=== PATIENT | female | born 1980 | race Caucasian/White ===

== ENCOUNTER 2018-01-08 14:16 | Emergency (ER) | payer OTHER ==
[~2018-01-08] VITALS: Ht 139.7 cm; Wt 63.0 kg
[~2018-01-08 14:16] MED LIST: ALBU8I INH; DIFL150T PO; HYDR-3533 PO; IMIT25TA PO; MACR100C PO; [UNRECOGNIZED DRUG - CODE] EX; [UNRECOGNIZED DRUG - CODE] TOP
[2018-01-08 14:40] VITALS: BP 145/75; PULSE 100; RESP 16; TEMP 97.7; O2SAT 95
--- NOTE | 2018-01-08 15:55 | PD ---
HPI Chief Complaint: GI Complaint Time Seen by Provider: 15:45 Travel History International Travel<30 days: No Contact w/Intl Traveler<30days: No Traveled to known affect area: No History of Present Illness HPI 37 y/o female presents with nausea and upper abdominal pain. She states she is also having pain over her bladder. She denies any other concurrent complaints. She denies recurrent history of this. She denies specific modifying factors. Quality is pressure. Severity is moderate. Location is upper. Duration is couple of days. 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 1/4 cc (Adverse Reaction, Mild, [facility] [place] warm all over and nauseous and lightheaded. Transient, 02/12/12) Reported Meds & Prescriptions Reported Meds & Active Scripts Active No Active Prescriptions or Reported Medications Review of Systems Except as stated in HPI: all other systems reviewed are Neg Physical Exam Narrative GENERAL: No apparent distress SKIN: Focused skin assessment warm/dry. HEAD: Atraumatic. Normocephalic. EYES: Pupils equal and round. No scleral icterus. No injection or drainage. ENT: No nasal bleeding or discharge. Mucous membranes pink and moist. NECK: Trachea midline. No JVD. CARDIOVASCULAR: Regular rate and rhythm. No murmur appreciated. RESPIRATORY: No accessory muscle use. Clear to auscultation. Breath sounds equal bilaterally. GASTROINTESTINAL: Abdomen soft, mild tenderness in epigastric and suprapubic area, nondistended. No rebound MUSCULOSKELETAL: No obvious deformities. No clubbing. No cyanosis. No edema. NEUROLOGICAL: Awake and alert. No obvious cranial nerve deficits. Motor grossly within normal limits. Normal speech. PSYCHIATRIC: Appropriate mood and affect; insight and judgment normal. Data Data Last Documented VS Vital Signs Date Time Temp Pulse Resp B/P (MAP) Pulse Ox O2 Delivery O2 Flow Rate FiO2 01/08/18 18:20 90 18 137/68 (91) 95 Room Air 01/08/18 14:40 97.7 Orders Orders Urinalysis - C+S If Indicated (01/08/18 14:55) Ed Urine Pregnancytest Poc (01/08/18 14:55) Complete Blood Count With Diff (01/08/18 15:49) Comprehensive Metabolic Panel (01/08/18 15:49) Lipase (01/08/18 15:49) Iv Access Insert/Monitor (01/08/18 15:49) Sodium Chlor 0.9% 1000 Ml Inj (Ns 1000 M (01/08/18 16:00) Ct Abd/Pel W/O Iv Contrast (01/08/18 ) Us Pelvis Comp W Doppler (01/08/18 ) Labs Laboratory Tests Test 01/08/18 15:55 01/08/18 16:45 White Blood Count 11.6 TH/MM3 Red Blood Count 5.01 MIL/MM3 Hemoglobin 13.8 GM/DL Hematocrit 41.3 % Mean Corpuscular Volume 82.4 FL Mean Corpuscular Hemoglobin 27.5 PG Mean Corpuscular Hemoglobin Concent 33.4 % Red Cell Distribution Width 12.8 % Platelet Count 282 TH/MM3 Mean Platelet Volume 8.4 FL Neutrophils (%) (Auto) 84.7 % Lymphocytes (%) (Auto) 7.2 % Monocytes (%) (Auto) 4.7 % Eosinophils (%) (Auto) 0.7 % Basophils (%) (Auto) 2.7 % Neutrophils # (Auto) 9.9 TH/MM3 Lymphocytes # (Auto) 0.8 TH/MM3 Monocytes # (Auto) 0.5 TH/MM3 Eosinophils # (Auto) 0.1 TH/MM3 Basophils # (Auto) 0.3 TH/MM3 CBC Comment DIFF FINAL Differential Comment Blood Urea Nitrogen 12 MG/DL Creatinine 0.60 MG/DL Random Glucose 121 MG/DL Total Protein 7.5 GM/DL Albumin 3.4 GM/DL Calcium Level 8.4 MG/DL Alkaline Phosphatase 91 U/L Aspartate Amino Transf (AST/SGOT) 16 U/L Alanine Aminotransferase (ALT/SGPT) 11 U/L Total Bilirubin 0.4 MG/DL Sodium Level 133 MEQ/L Potassium Level 4.2 MEQ/L Chloride Level 100 MEQ/L Carbon Dioxide Level 27.1 MEQ/L Anion Gap 6 MEQ/L Estimat Glomerular Filtration Rate 113 ML/MIN Lipase 109 U/L Urine Collection Type CLEAN CATCH Urine Color YELLOW Urine Turbidity CLEAR Urine pH 7.0 Urine Specific [place] 1.016 Urine Protein NEG mg/dL Urine Glucose (UA) NEG mg/dL Urine Ketones NEG mg/dL Urine Occult Blood NEG Urine Nitrite NEG Urine Bilirubin NEG Urine Leukocyte Esterase NEG Urine Squamous Epithelial Cells 6-8 /hpf Microscopic Urinalysis Comment CULT NOT INDICATED MDM Medical Decision Making Medical Screen Exam Complete: Yes Emergency Medical Condition: Yes Medical Record Reviewed: Yes (Past history confirmed) Interpretation(s) CBC & BMP Diagram 01/08/18 15:55 Total Protein 7.5, Albumin 3.4, Calcium Level 8.4 L, Alkaline Phosphatase 91, Aspartate Amino Transf (AST/SGOT) 16, Alanine Aminotransferase (ALT/SGPT) 11, Total Bilirubin 0.4 Last 24 hours Impressions Abdomen/Pelvis CT 01/08/18 0000 Signed Impressions: Service Date/Time: Saturday, January 08, 2018 17:17 - CONCLUSION: Marked elevation of the left diaphragm of undetermined etiology. Nonspecific low density mass in the left lobe of the liver. Further characterization with multiphase contrasted MRI on an elective basis would be reassuring. Right adnexal mass may be associated with the right ovary or may be an exit uterine mass. Further evaluation with elective pelvic MRI suggested. No evidence of kidney stone or hydronephrosis. Severe curvature and morphologic deformity of the spine. Gonzalo Chavez MD Differential Diagnosis gastritis, UTI, , stone,Cholelithiasis Narrative Course We will check blood work, urinalysis and dose with IV fluids and Zofran and reevaluate ct with large right ovarian cyst, will check pelvic ultrasound for flow ultrasound without flow per tech on right and patient not sexually active so can 't perform transvaginal, will discuss with ob hospitalist Physician Communication Physician Communication dr ascencio states to send to [facility] ER for evaluation dr smith given report to call dr ascencio for evaluation when in ER Diagnosis Primary Impression: Ovarian cyst Qualified Codes: N83.201 - Unspecified ovarian cyst, right side Additional Impression: Abdominal pain Qualified Codes: R10.9 - Unspecified abdominal pain Scripts No Active Prescriptions or Reported Meds Disposition: 70 TRANSFER TO OTHER FACILITY ([facility] er) Condition: Stable Clara Boss MD Jan 08, 2018 15:55
[2018-01-08] MEDS ORDERED: SODIUM CHLOR 0.9% 1000 ML INJ 1,000 ML IV ONE (16:00)
[2018-01-08 16:12] LABS: AUTOMATED NEUTROPHIL # 9.9 TH/MM3 (1.8-7.7); BASOPHIL # 0.3 TH/MM3 (0-0.2); BASOPHIL % 2.7 % (0.0-2.0); EOSINOPHIL # 0.1 TH/MM3 (0-0.4); EOSINOPHIL % 0.7 % (0.0-4.0); HEMATOCRIT 41.3 % (35.0-46.0); HEMOGLOBIN 13.8 GM/DL (11.6-15.3); LYMPH % 7.2 % (9.0-44.0); LYMPHOCYTE # 0.8 TH/MM3 (1.0-4.8); MEAN CELL VOLUME 82.4 FL (80.0-100.0); MEAN CORPUSCULAR HEMOGLOBIN 27.5 PG (27.0-34.0); MEAN CORPUSCULAR HGB CONC 33.4 % (32.0-36.0); MEAN PLATELET VOLUME 8.4 FL (7.0-11.0); MONO % 4.7 % (0.0-8.0); MONOCYTE # 0.5 TH/MM3 (0-0.9); NEUT % 84.7 % (16.0-70.0); PLATELET COUNT 282 TH/MM3 (150-450); RED BLOOD COUNT 5.01 MIL/MM3 (4.00-5.30); RED CELL DISTRIBUTION WIDTH 12.8 % (11.6-17.2); WHITE BLOOD COUNT 11.6 TH/MM3 (4.0-11.0)
[2018-01-08 16:42] LABS: CHLORIDE 100 MEQ/L (98-107); SODIUM (NA) 133 MEQ/L (136-145)
[2018-01-08 16:45] LABS: CALCIUM 8.4 MG/DL (8.5-10.1)
[2018-01-08 16:46] LABS: ALBUMIN 3.4 GM/DL (3.4-5.0); BICARBONATE 27.1 MEQ/L (21.0-32.0); BLOOD UREA NITROGEN 12 MG/DL (7-18); GLUCOSE,RANDOM 121 MG/DL (74-106)
[2018-01-08 16:49] LABS: ALT (GPT) 11 U/L (10-53); AST (GOT) 16 U/L (15-37); GLOMERULAR FILTRATION RATE 113 ML/MIN (>89)
[2018-01-08 16:50] LABS: TOTAL BILIRUBIN ADULT 0.4 MG/DL (0.2-1.0); TOTAL PROTEIN 7.5 GM/DL (6.4-8.2)
[2018-01-08 16:52] LABS: ALKALINE PHOSPHATASE 91 U/L (45-117)
[2018-01-08 17:01] LABS: BILIRUBIN, URINE NEG (NEG); BLOOD, URINE NEG (NEG); GLUCOSE,URINE NEG (NEG); KETONE, URINE NEG (NEG); NITRITE,URINE NEG (NEG); URINE LEUKOCYTE ESTERASE NEG (NEG)
[2018-01-08 17:14] LABS: URINE COLOR YELLOW (YELLW/STRAW)
--- NOTE | 2018-01-08 17:51 | RADRPT ---
EXAM DATE/TIME: 01/08/2018 17:17 [facility] COMPARISON: No previous studies available for comparison. INDICATIONS : Abdominal pain, urinary "pressure," and nausea. ORAL CONTRAST: No oral contrast ingested. RADIATION DOSE: 18.10 CTDIvol (mGy) MEDICAL HISTORY : Scoliosis. SURGICAL HISTORY : None. ENCOUNTER: Initial ACUITY: 1 day PAIN SCALE: 5/10 LOCATION: abdomen TECHNIQUE: Volumetric scanning of the abdomen and pelvis was performed. Using automated exposure control and ad justment of the mA and/or kV according to patient size, radiation dose was kept as low as reasonably achievable to obtain optimal diagnostic quality images. DICOM format image data is available electro nically for review and comparison. FINDINGS: LOWER LUNGS: The left diaphragm is markedly elevated and the left lung bases not therefore seen. Visualized right lung base is clear. There is dextroposition of the cardiac and mediastinal structures secondary to pr esence of abdominal contents in the low left thorax LIVER: 1 cm low density in the left lobe may be cyst or hemangioma. This is nonspecific. No evidence of bili jose ductal dilatation SPLEEN: Incompletely seen PANCREAS: Within normal limits. KIDNEYS: Normal in size and shape. There is no mass, stone, or hydronephrosis. ADRENAL GLANDS: Within normal limits. VASCULAR: There is no aortic aneurysm. BOWEL/MESENTERY: Incompletely seen. No dilated bowel loops are identified. ABDOMINAL WALL: Moderate rectus diastases.. RETROPERITONEUM: There is no lymphadenopathy. BLADDER: No wall thickening or mass. REPRODUCTIVE: 7 cm complex solid soft tissue density mass in the right adnexal region may be associated with the ri ght ovary, however this could also be an exophytic uterine mass such as fibroid. Left ovary appears g rossly normal. There is no free pelvic fluid identified. INGUINAL: There is no lymphadenopathy or hernia. MUSCULOSKELETAL: Severe curvature and morphologic deformity of the thoracolumbar spine CONCLUSION: Marked elevation of the left diaphragm of undetermined etiology. Nonspecific low density mass in the left lobe of the liver. Further characterization with multiphase contrasted MRI on an elective basis would be reassuring. Right adnexal mass may be associated with the right ovary or may be an exit uterine mass. Further alejandro luation with elective pelvic MRI suggested. No evidence of kidney stone or hydronephrosis. Severe curvature and morphologic deformity of the spine. Gonzalo Chavez MD on January 08, 2018 at 17:40 Board Certified Radiologist. This report was verified electronically.
[2018-01-08 18:20] VITALS: BP 137/68; PULSE 90; RESP 18; O2SAT 95
--- NOTE | 2018-01-08 18:59 | RADRPT ---
EXAM DATE/TIME: 01/08/2018 18:24 [facility] COMPARISON: No previous studies available for comparison. INDICATIONS : Back and abdominal pain. MEDICAL HISTORY : Scoliosis. Neurofibromatosis. Gastroparesis. SURGICAL HISTORY : None. ENCOUNTER: ACUITY: 1 day PAIN SCORE: 6/10 LOCATION: Bilateral pelvis MEASUREMENTS: UTERUS: 9.6 x 5.2 x 3.6 cm ENDOMETRIAL STRIPE: 4 mm RIGHT OVARY: 7.5 x 6.1 x 5.3 cm LEFT OVARY: 3.2 x 2.2 x 1.9 cm FINDINGS: UTERUS: The myometrium has homogeneous echotexture without mass. There is a small amount of fluid in the endo metrial cavity and along the lower uterine segment. RIGHT OVARY: The right ovary appears to be diffusely enlarged. No definite color flow is seen within the right ova ry. There is a right ovarian cyst measuring 2.3 x 2.0 cm. LEFT OVARY: Ovary contains no mass or significant cystic lesion. There is flow to the left ovary. MISCELLANEOUS: No free fluid. CONCLUSION: 1. There is a small amount of fluid in the endometrial cavity and along the lower uterine segment. 2. Diffusely enlarged right ovary measuring approximately 7.5 cm with no recorded Doppler flow. Ovari an torsion would be a consideration if this correlates with patient's physical and clinical exam. 3. There is a benign-appearing right ovarian cyst measuring 2.3 cm. 4. The left ovary is unremarkable. Juanjose Cardoso MD on January 08, 2018 at 18:54 Board Certified Radiologist. This report was verified electronically.
[2018-01-08 19:20] VITALS: BP 147/71; PULSE 99; RESP 16; TEMP 97.9; O2SAT 100
[2018-01-08 19:57] VITALS: BP 127/79; PULSE 100; RESP 16; TEMP 98; O2SAT 100
[2018-01-08] MEDS ORDERED: KETOROLAC TROMETHAMINE 30 MG/ML (IVP) VIAL IV PUSH ONE (20:30)
--- NOTE | 2018-01-08 21:01 | PD ---
Physical Exam Date Seen by Provider: Jan 08, 2018 Time Seen by Provider: 21:00 Narrative For full history and physical examination please see previous providers note. Patient was transferred from [place] emergency department for evaluation by OB hospitalist. Notify Dr. Beltran who is currently in a section and will be down to assess patient when the surgery is completed. Data Data Last Documented VS Vital Signs Date Time Temp Pulse Resp B/P (MAP) Pulse Ox O2 Delivery O2 Flow Rate FiO2 01/08/18 19:57 98.0 100 16 127/79 (95) 100 Room Air Orders Orders Urinalysis - C+S If Indicated (01/08/18 14:55) Ed Urine Pregnancytest Poc (01/08/18 14:55) Complete Blood Count With Diff (01/08/18 15:49) Comprehensive Metabolic Panel (01/08/18 15:49) Lipase (01/08/18 15:49) Iv Access Insert/Monitor (01/08/18 15:49) Sodium Chlor 0.9% 1000 Ml Inj (Ns 1000 M (01/08/18 16:00) Ct Abd/Pel W/O Iv Contrast (01/08/18 ) Us Pelvis Comp W Doppler (01/08/18 ) Ketorolac Inj (Toradol Inj) (01/08/18 20:30) Labs Laboratory Tests Test 01/08/18 15:55 01/08/18 16:45 White Blood Count 11.6 TH/MM3 Red Blood Count 5.01 MIL/MM3 Hemoglobin 13.8 GM/DL Hematocrit 41.3 % Mean Corpuscular Volume 82.4 FL Mean Corpuscular Hemoglobin 27.5 PG Mean Corpuscular Hemoglobin Concent 33.4 % Red Cell Distribution Width 12.8 % Platelet Count 282 TH/MM3 Mean Platelet Volume 8.4 FL Neutrophils (%) (Auto) 84.7 % Lymphocytes (%) (Auto) 7.2 % Monocytes (%) (Auto) 4.7 % Eosinophils (%) (Auto) 0.7 % Basophils (%) (Auto) 2.7 % Neutrophils # (Auto) 9.9 TH/MM3 Lymphocytes # (Auto) 0.8 TH/MM3 Monocytes # (Auto) 0.5 TH/MM3 Eosinophils # (Auto) 0.1 TH/MM3 Basophils # (Auto) 0.3 TH/MM3 CBC Comment DIFF FINAL Differential Comment Blood Urea Nitrogen 12 MG/DL Creatinine 0.60 MG/DL Random Glucose 121 MG/DL Total Protein 7.5 GM/DL Albumin 3.4 GM/DL Calcium Level 8.4 MG/DL Alkaline Phosphatase 91 U/L Aspartate Amino Transf (AST/SGOT) 16 U/L Alanine Aminotransferase (ALT/SGPT) 11 U/L Total Bilirubin 0.4 MG/DL Sodium Level 133 MEQ/L Potassium Level 4.2 MEQ/L Chloride Level 100 MEQ/L Carbon Dioxide Level 27.1 MEQ/L Anion Gap 6 MEQ/L Estimat Glomerular Filtration Rate 113 ML/MIN Lipase 109 U/L Urine Collection Type CLEAN CATCH Urine Color YELLOW Urine Turbidity CLEAR Urine pH 7.0 Urine Specific [place] 1.016 Urine Protein NEG mg/dL Urine Glucose (UA) NEG mg/dL Urine Ketones NEG mg/dL Urine Occult Blood NEG Urine Nitrite NEG Urine Bilirubin NEG Urine Leukocyte Esterase NEG Urine Squamous Epithelial Cells 6-8 /hpf Microscopic Urinalysis Comment CULT NOT INDICATED MDM Medical Record Reviewed: Yes Supervised Visit with SHAKIRA: Yes Interpretation(s) Last Impressions Pelvis Ultrasound 01/08/18 0000 Signed Impressions: Service Date/Time: Monday, January 08, 2018 18:24 - CONCLUSION: 1. There is a small amount of fluid in the endometrial cavity and along the lower uterine segment. 2. Diffusely enlarged right ovary measuring approximately 7.5 cm with no recorded Doppler flow. Ovarian torsion would be a consideration if this correlates with patient's physical and clinical exam. 3. There is a benign-appearing right ovarian cyst measuring 2.3 cm. 4. The left ovary is unremarkable. Juanjose Cardoso MD Abdomen/Pelvis CT 01/08/18 0000 Signed Impressions: Service Date/Time: Monday, January 08, 2018 17:17 - CONCLUSION: Marked elevation of the left diaphragm of undetermined etiology. Nonspecific low density mass in the left lobe of the liver. Further characterization with multiphase contrasted MRI on an elective basis would be reassuring. Right adnexal mass may be associated with the right ovary or may be an exit uterine mass. Further evaluation with elective pelvic MRI suggested. No evidence of kidney stone or hydronephrosis. Severe curvature and morphologic deformity of the spine. Gonzalo Chavez MD Laboratory Tests Test 01/08/18 15:55 01/08/18 16:45 White Blood Count 11.6 TH/MM3 Red Blood Count 5.01 MIL/MM3 Hemoglobin 13.8 GM/DL Hematocrit 41.3 % Mean Corpuscular Volume 82.4 FL Mean Corpuscular Hemoglobin 27.5 PG Mean Corpuscular Hemoglobin Concent 33.4 % Red Cell Distribution Width 12.8 % Platelet Count 282 TH/MM3 Mean Platelet Volume 8.4 FL Neutrophils (%) (Auto) 84.7 % Lymphocytes (%) (Auto) 7.2 % Monocytes (%) (Auto) 4.7 % Eosinophils (%) (Auto) 0.7 % Basophils (%) (Auto) 2.7 % Neutrophils # (Auto) 9.9 TH/MM3 Lymphocytes # (Auto) 0.8 TH/MM3 Monocytes # (Auto) 0.5 TH/MM3 Eosinophils # (Auto) 0.1 TH/MM3 Basophils # (Auto) 0.3 TH/MM3 CBC Comment DIFF FINAL Differential Comment Blood Urea Nitrogen 12 MG/DL Creatinine 0.60 MG/DL Random Glucose 121 MG/DL Total Protein 7.5 GM/DL Albumin 3.4 GM/DL Calcium Level 8.4 MG/DL Alkaline Phosphatase 91 U/L Aspartate Amino Transf (AST/SGOT) 16 U/L Alanine Aminotransferase (ALT/SGPT) 11 U/L Total Bilirubin 0.4 MG/DL Sodium Level 133 MEQ/L Potassium Level 4.2 MEQ/L Chloride Level 100 MEQ/L Carbon Dioxide Level 27.1 MEQ/L Anion Gap 6 MEQ/L Estimat Glomerular Filtration Rate 113 ML/MIN Lipase 109 U/L Urine Collection Type CLEAN CATCH Urine Color YELLOW Urine Turbidity CLEAR Urine pH 7.0 Urine Specific [place] 1.016 Urine Protein NEG mg/dL Urine Glucose (UA) NEG mg/dL Urine Ketones NEG mg/dL Urine Occult Blood NEG Urine Nitrite NEG Urine Bilirubin NEG Urine Leukocyte Esterase NEG Urine Squamous Epithelial Cells 6-8 /hpf Microscopic Urinalysis Comment CULT NOT INDICATED Vital Signs Date Time Temp Pulse Resp B/P (MAP) Pulse Ox O2 Delivery O2 Flow Rate FiO2 01/08/18 19:57 98.0 100 16 127/79 (95) 100 Room Air 01/08/18 19:37 99 16 100 01/08/18 19:20 97.9 99 16 147/71 (96) 100 Room Air 01/08/18 18:20 90 18 137/68 (91) 95 Room Air 01/08/18 14:40 97.7 100 16 145/75 (36) 93 Narrative Course Patient is a 37-year-old female that was transferred from [place] to the main campus to be evaluated by OB hospitalist. Dr. Beltran evaluated patient, he did not feel clinically that patient had an ovarian torsion. Regards to the abdominal pain, patient's abdominal exam is benign, the pain that she was experiencing earlier is epigastric in nature and seems most consistent with a gastritis. Patient will be provided with a prescription for Protonix, she is encouraged to follow-up with her primary doctor as well as a transit proof machine operator for further evaluation and management. Patient was encouraged to return to emergency department for any new or worsening symptoms. Patient stable for discharge. Diagnosis Primary Impression: Ovarian cyst Qualified Codes: N83.201 - Unspecified ovarian cyst, right side Additional Impressions: Abdominal pain Qualified Codes: R10.9 - Unspecified abdominal pain Gastritis Qualified Codes: K29.70 - Gastritis, unspecified, without bleeding Referrals: [facility] call for appointment Primary Care Physician 2 days Patient Instructions: Diet for Stomach Ulcers and Gastritis (GEN), Gastritis ( ED), General Instructions, Ovarian Cyst (DC) Additional Instruction: Follow-up with your primary doctor Follow-up with transit proof machine operator Take medications as directed Return to emergency department any worsening symptoms Med/Other Pt SpecificInfo: Prescription(s) given Scripts Pantoprazole (Protonix) 40 Mg Tab 40 MG PO DAILY for Reflux, #14 TAB 0 Refills Prov: Nadia Broderick 01/08/18 Disposition: 01 DISCHARGE HOME Condition: Stable Nadia Broderick Jan 08, 2018 21:01
[2018-01-08] MEDS ORDERED: PROT40TA PO (22:26)
--- NOTE | 2018-01-08 22:51 | PD.CONS ---
History & Physical H&P PRESIDENT + PUBLISHER consultation Patient is a 37-year-old white female G0 is virginal and presents her for [facility] ER for evaluation of possible ovarian torsion and abnormality seen on ultrasound of the pelvis while working of upper abdominal pain. Patient has no pelvic pain. Last menstrual cycle ended this past week was normal for her she has monthly cycles she is not on control pills or hormones of any kind she 's never had intercourse or any type of gynecologic exam on ultrasound was a 7 x 5 cm solid right ovary that was not getting blood flow and was referred here to rule out torsion the remainder of the pelvic ultrasound was normal .., patient CT scan today which shows markedly elevated left diaphragm and mediastinal rotation due to pressure from the abdominal contents on the left diaphragm and up into the chest on the left side Her history is positive for neurofibromatosis and scoliosis, history of chronic GI problems including gastroparesis chronic reflux and heartburn, she described having an inverted stomach was told she had that Exam--abdomen is flat essentially nontender QUADRANT NO REBOUND TENDERNESS SHE HAS NORMAL BOWEL SOUNDS AND SHE HAS BOWEL SOUNDS AND GO UP IN THE LEFT SIDE OF HER CHEST LEVEL OF THE HEART AND THEN AROUND LATERALLY . We cannot do a pelvic exam she has an intact hymen and does not allow even the smallest finger without great discomfort. There is no way to do a true assessment of gynecologic health without being able to do a pelvic exam Impression-and plan ---7 x 5 cm ovary on the right that is solid appearance and uniform echogenic pattern is consistent with ovarian fibroma, endometrioma, or thecoma, I doubt a malignant neoplasm. Fact that were not seen blood flow to that ovary consistently does not automatically mean a torsion , it could be just the size of the ovary compressing the sidewall of and decreasing its flow, it could be just the fibroma not getting that much blood flow anymore, but since there is no pain in the area seriously doubt there is a portion of all needs to be done for gynecologic standpoint is a repeat ultrasound in 2-3 months to assess to make sure it has not increased in size Would recommend a GI consult, her pain is related to the epigastric changes seen left diaphragmatic elevation and pressure from the abdominal contents on the left than the weak diaphragm on the same side Jamie Beltran II, MD Jan 08, 2018 22:51
== END 2018-01-08 23:04 | disposition home or self-care (01) ==
LOC: PHED 14:16 → NEPD 23:04
DX: N83.201 Unspecified ovarian cyst, right side (principal); K29.70 Gastritis, unspecified, without bleeding; R10.9 Unspecified abdominal pain
CPT/HCPCS: 74176; 76856; 80053; 81001; 83690; 84703; 85025; 93975; 96361; 96374; 99285; J1885; J7030